=== PATIENT | female | born 1945 | race Hispanic/Latino ===

== ENCOUNTER 2019-01-03 08:19 | Emergency (ER) | payer OTHER ==
--- NOTE | 2019-01-03 09:15 | RAD REPORT ---
EXAM DESCRIPTION: RAD - Foot Right 3 View - 01/03/2019 8:56 am CLINICAL HISTORY: pain/post-fall COMPARISON: No comparisons FINDINGS: Transverse fracture is seen involving the base of the fifth metatarsal. Mild adjacent soft tissue swelling is evident. Hardware is present in the medial malleolus. Prominent plantar calcaneal spur seen. IMPRESSION: Transverse fracture base of the fifth metatarsal noted.
--- NOTE | 2019-01-03 09:27 | ER ---
Nurse's Notes [facility] Name: Naheed Vera Age: 73 yrs Sex: Female : 1945 Arrival Date: 01/03/2019 Time: 08:22 Bed 12 Private MD: Isabella Spain Diagnosis: Nondisplaced fracture of fifth metatarsal bone, right foot Presentation: 01/03 08:36 Presenting complaint: Patient states: I tripped yesterday. Pt c/o pain to lateral aa5 aspect of right foot. Transition of care: patient was not received from another setting of care. Onset of symptoms was January 02, 2019. Risk Assessment: Do you want to hurt yourself or someone else? Patient reports no desire to harm self or others. Initial Sepsis Screen: Does the patient meet any 2 criteria? No. Patient's initial sepsis screen is negative. Does the patient have a suspected source of infection? No. Patient's initial sepsis screen is negative. Care prior to arrival: None. 08:36 Method Of Arrival: Ambulatory aa5 08:36 Acuity: [place] 4 aa5 Triage Assessment: 08:38 Injury Description: Pt states "I accidentally stepped on a small hole in the ground and aa5 tripped". Historical: - Allergies: 08:37 No Known Allergies; aa5 - PMHx: 08:37 None; aa5 - PSHx: 08:37 None; aa5 - Immunization history:: Flu vaccine status is unknown. - Social history:: Smoking status: Patient/guardian denies using tobacco. - Ebola Screening: : No symptoms or risks identified at this time. Screenin:38 Abuse screen: Denies threats or abuse. Nutritional screening: No deficits noted. aa5 Tuberculosis screening: No symptoms or risk factors identified. Fall Risk Fall in past 12 months (25 points). Ambulatory Aid- Crutches/Cane/Walker (15 pts). Total Villanueva Fall Scale indicates Low Risk Score (25-44 pts). Fall prevention measures have been instituted. Family Present and informed to notify staff if they need to leave bedside. Assessment: 08:38 General: Appears comfortable, Behavior is calm, cooperative. Pain: Complains of pain in aa5 lateral side of right foot Pain does not radiate. Pain currently is 10 out of 10 on a pain scale. Quality of pain is described as sharp, throbbing, Pain began 1 day ago. Is continuous, Aggravated by increased activity, weight bearing. Neuro: Level of Consciousness is awake, alert, obeys commands, Oriented to person, place, time, situation. Cardiovascular: Patient's skin is warm and dry. Respiratory: Airway is patent Respiratory effort is even, unlabored, Respiratory pattern is regular, symmetrical. GI: No signs and/or symptoms were reported involving the gastrointestinal system. : No signs and/or symptoms were reported regarding the genitourinary system. EENT: No signs and/or symptoms were reported regarding the EENT system. Derm: Skin is pink, warm \\T\\ dry. Bruising that is dark purple, green, on lateral side of right foot. Musculoskeletal: Range of motion: intact in all extremities. 09:36 Reassessment: Patient is alert, oriented x 3, equal unlabored respirations, skin aa5 warm/dry/pink. Walking boot placed to right foot . Vital Signs: 08:37 BP 160 / 66; Pulse 81; Resp 16 S; Temp 99.0(TE); Pulse Ox 99% on R/A; Weight 72.57 kg aa5 (R); Height 5 ft. 2 in. (157.48 cm) (R); Pain 10/10; 08:37 Body Mass Index 29.26 (72.57 kg, 157.48 cm) aa5 ED Course: 08:22 Patient arrived in ED. as 08:22 Isabella Spain MD is Private Physician. as 08:36 Arm band placed on. aa5 08:36 Patient has correct armband on for positive identification. Call light in reach. Adult aa5 w/ patient. 08:37 Triage completed. aa5 08:38 Magali Holt, RN is Primary Nurse. aa5 08:54 No provider procedures requiring assistance completed. aa5 08:55 Foot Right 3 View XRAY In Process Unspecified. EDMS 08:57 Soledad Morales [facility]-C [facility]. snw 08:57 Josiah Riggs MD is Attending Physician. snw 09:25 Isabella Spain MD is Referral Physician. snw 09:25 Taj Odom MD is Referral Physician. snw 09:36 Patient did not have IV access during this emergency room visit. aa5 Administered Medications: No medications were administered Outcome: : Discharge ordered by . snw 09:36 Discharged to home via wheelchair, with family. aa5 09:36 Condition: good 09:36 Discharge instructions given to patient, Instructed on discharge instructions, follow up and referral plans. medication usage, Demonstrated understanding of instructions, follow-up care, medications, Prescriptions given X 1. 09:37 Patient left the ED. aa5 Signatures: Dispatcher [employer] EDMS Soledad Morales, CONCRETE BUSTER OPERATOR-C CONCRETE BUSTER OPERATOR-Sylvia Anaya Audri, RN RN aa5
--- NOTE | 2019-01-03 09:27 | EDPHYS ---
Physician Documentation [facility] Name: Naheed Vera Age: 73 yrs Sex: Female : 1945 Arrival Date: 01/03/2019 Time: 08:22 Bed 12 Private MD: Isabella Spain ED Physician Josiah Riggs HPI: 01/03 09:23 This 73 yrs old Female presents to ER via Ambulatory with complaints of Foot snw Injury. 09:23 The patient presents with a contusion, an injury, pain, swelling, tenderness. The snw complaints affect the lateral aspect of right foot. Context: The problem was sustained outdoors, resulted from a mis-step, the patient can partially bear weight, the patient is able to ambulate. Onset: The symptoms/episode began/occurred suddenly, last night. Associated signs and symptoms: The patient has no apparent associated signs or symptoms. Severity of symptoms: At their worst the symptoms were mild, moderate. The patient has experienced a previous episode, many years ago. It is unknown whether or not the patient has recently seen a physician. no other injury, no LOC. Historical: - Allergies: 08:37 No Known Allergies; aa5 - PMHx: 08:37 None; aa5 - PSHx: 08:37 None; aa5 - Immunization history:: Flu vaccine status is unknown. - Social history:: Smoking status: Patient/guardian denies using tobacco. - Ebola Screening: : No symptoms or risks identified at this time. ROS: 09:23 Constitutional: Negative for fever, chills, and weight loss, Eyes: Negative for injury, snw pain, redness, and discharge, ENT: Negative for injury, pain, and discharge, Neck: Negative for injury, pain, and swelling, Cardiovascular: Negative for chest pain, palpitations, and edema, Respiratory: Negative for shortness of breath, cough, wheezing, and pleuritic chest pain, Abdomen/GI: Negative for abdominal pain, nausea, vomiting, diarrhea, and constipation, Back: Negative for injury and pain, : Negative for injury, bleeding, discharge, and swelling, Skin: Negative for injury, rash, and discoloration, Neuro: Negative for headache, weakness, numbness, tingling, and seizure. 09:23 MS/extremity: Positive for injury or acute deformity, contusion, pain, of the lateral side of right foot. Exam: 09:22 Constitutional: This is a well developed, well nourished patient who is awake, alert, snw and in no acute distress. Head/Face: Normocephalic, atraumatic. Eyes: Pupils equal round and reactive to light, extra-ocular motions intact. Lids and lashes normal. Conjunctiva and sclera are non-icteric and not injected. Cornea within normal limits. Periorbital areas with no swelling, redness, or edema. ENT: Nares patent. No nasal discharge, no septal abnormalities noted. Tympanic membranes are normal and external auditory canals are clear. Oropharynx with no redness, swelling, or masses, exudates, or evidence of obstruction, uvula midline. Mucous membranes moist. Neck: Trachea midline, no thyromegaly or masses palpated, and no cervical lymphadenopathy. Supple, full range of motion without nuchal rigidity, or vertebral point tenderness. No Meningismus. Chest/axilla: Normal chest wall appearance and motion. Nontender with no deformity. No lesions are appreciated. Cardiovascular: Regular rate and rhythm with a normal S1 and S2. No gallops, murmurs, or rubs. Normal PMI, no JVD. No pulse deficits. Respiratory: Lungs have equal breath sounds bilaterally, clear to auscultation and percussion. No rales, rhonchi or wheezes noted. No increased work of breathing, no retractions or nasal flaring. Abdomen/GI: Soft, non-tender, with normal bowel sounds. No distension or tympany. No guarding or rebound. No evidence of tenderness throughout. Back: No spinal tenderness. No costovertebral tenderness. Full range of motion. Skin: Warm, dry with normal turgor. Normal color with no rashes, no lesions, and no evidence of cellulitis. Neuro: Awake and alert, GCS 15, oriented to person, place, time, and situation. Cranial nerves II-XII grossly intact. Motor strength 5/5 in all extremities. Sensory grossly intact. Cerebellar exam normal. Normal gait. Psych: Awake, alert, with orientation to person, place and time. Behavior, mood, and affect are within normal limits. 09:22 Musculoskeletal/extremity: Extremities: grossly normal except: noted in the lateral side of right foot: ecchymosis, tenderness, ROM: no acute changes, Circulation is intact in all extremities. Sensation intact. Vital Signs: 08:37 BP 160 / 66; Pulse 81; Resp 16 S; Temp 99.0(TE); Pulse Ox 99% on R/A; Weight 72.57 kg aa5 (R); Height 5 ft. 2 in. (157.48 cm) (R); Pain 10/10; 08:37 Body Mass Index 29.26 (72.57 kg, 157.48 cm) aa5 MDM: 09:19 Patient medically screened. snw 09:26 Data reviewed: vital signs, nurses notes. Data interpreted: Pulse oximetry: on room air snw is 99 %. Interpretation: normal. Counseling: I had a detailed discussion with the patient and/or guardian regarding: the historical points, exam findings, and any diagnostic results supporting the discharge/admit diagnosis, the presence of at least one elevated blood pressure reading (>120/80) during this emergency department visit, radiology results, the need for outpatient follow up, to return to the emergency department if symptoms worsen or persist or if there are any questions or concerns that arise at home. Special discussion: I have referred the patient to see his PCP for further evaluation of high blood pressure. Based on the history and exam findings, there is no indication for further emergent testing or inpatient evaluation. I discussed with the patient/guardian the need to see the orthopedic surgeon for further evaluation of the symptoms. I discussed with the patient/guardian the need to see the primary care provider for further evaluation of the symptoms. 01/03 08:40 Order name: Foot Right 3 View XRAY; Complete Time: 09:16 aa5 01/03 09:37 Order name: Walking boot; Complete Time: 09:37 aa5 Administered Medications: No medications were administered Disposition: 18:12 Co-signature as Attending Physician, Josiah Riggs MD I agree with the assessment and wa plan of care. Disposition: 01/03/19 09:26 Discharged to Home. Impression: Nondisplaced fracture of fifth metatarsal bone, right foot. - Condition is Stable. - Discharge Instructions: Elastic Bandage and RICE, Metatarsal Fracture, Cryotherapy. - Prescriptions for Diclofenac Sodium 75 mg Oral Tablet, Delayed Release (E.C.) - take 1 tablet by ORAL route 2 times per day; 12 tablet. - Medication Reconciliation Form, Thank You Letter, Antibiotic Education, Prescription Opioid Use form. - Follow up: Isabella Spain MD; When: 5 - 6 days; Reason: Recheck today's complaints, Continuance of care, Re-evaluation by your physician. Follow up: Taj Odom MD; When: 2 - 3 days; Reason: Recheck today's complaints, Continuance of care. Signatures: Dispatcher [employer] EDMS Soledad Morales, DEPARTMENT HELPER-C DEPARTMENT HELPER-Csnw Magali Holt, RN RN aa5 Josiah Riggs MD MD tx Corrections: (The following items were deleted from the chart) 09:37 09:26 01/03/2019 09:26 Discharged to Home. Impression: Nondisplaced fracture of fifth aa5 metatarsal bone, right foot. Condition is Stable. Forms are Medication Reconciliation Form, Thank You Letter, Antibiotic Education, Prescription Opioid Use. Follow up: Isabella Spain; When: 5 - 6 days; Reason: Recheck today's complaints, Continuance of care, Re-evaluation by your physician. Follow up: Taj Odom; When: 2 - 3 days; Reason: Recheck today's complaints, Continuance of care. snw
[2019-01-03 09:41] VITALS: BP 160/66; TEMP 99; O2SAT 99
== END 2019-01-03 09:37 | disposition home or self-care (01) ==
LOC: ER 08:19
DX: S92.354A Nondisplaced fracture of fifth metatarsal bone, right foot, initial encounter for closed fracture (principal); X50.1XXA Overexertion from prolonged static or awkward postures, initial encounter
CPT/HCPCS: 99283